=== PATIENT | female | born 1990 | race Caucasian/White ===

== ENCOUNTER 2017-01-23 08:49 | Inpatient (IN) ==
[2017-01-23] MEDS ORDERED: Naloxone 0.4 MG/ML INJ IVP PRN ×2 (09:29→13:59)
[2017-01-23] MEDS ORDERED: Famotidine 20 MG/2 ML VIAL IVP PRN (09:29)
[2017-01-23 10:13] LABS: Basophils % 0.4 %; Eosinophils % 0.5 %; Hematocrit 37.5 % (35.3-44.9); Hemoglobin 13.1 g/dL (11.5-15.4); Immature Granulocytes % 0.8 % (0-4); Lymphocytes # 1.7 K/mcL (0.6-4.6); Lymphocytes % 21.8 %; Mean Corpuscular HGB Conc 34.9 g/dL (31.6-35.5); Mean Corpuscular Hemoglobin 30.2 pg (28.0-33.3); Mean Corpuscular Volume 86.4 fL (83.0-100.0); Mean Platelet Volume 9.6 fL (9.4-12.4); Monocytes # 0.7 K/mcL (0.0-1.3); Monocytes % 8.5 %; Neutrophils # 5.3 K/mcL (1.6-8.9); Platelet Count 183 K/mcL (140-400); Red Blood Count 4.34 M/mcL (3.82-4.97); Red Cell Distribution Width 12.8 % (11.5-14.5)
[2017-01-23 11:00] LABS: Amphetamine Screen,Urine Negative ng/mL (Cutoff=1000); Barbiturate Screen,Urine Negative ng/mL (Cutoff=200); Benzodiazepines Screen,Urine Negative ng/mL (Cutoff=200); Cannabinoid Screen,Urine Negative ng/mL (Cutoff = 50); Cocaine Screen,Urine Negative ng/mL (Cutoff= 300); Opiate Screen,Urine Negative ng/mL (Cutoff=300); Phencyclidine Screen,Urine Negative ng/mL (Cutoff=25)
--- NOTE | 2017-01-23 11:18 | OB/GYN History & Physical ---
Date of Encounter: 01/23/17 Time of Encounter: 11:14 Assessment and Plan (1) Term Current visit: Yes Status: Acute P (2) Low amniotic fluid Current visit: Yes Status: Acute Admit for induction of labor due ot oligohydramnios. Rossi balloon induction. GBS negative. Anticpate . EPidural when requested. Qualifiers: Fetus number: single or unspecified fetus Trimester: third trimester Qualified Code(s): O41.03X0 - Oligohydramnios, third trimester, not applicable or unspecified (3) Heart murmur Current visit: Yes Status: Acute Heart murmur heard over the upper right sternal border. Patient states that she has been evaluated for this in the past and has been cleared. Patient has been cleared by [facility] for epidural and normal delivery. Anesthesia is aware of the murmur. History of Present Illness HPI: Ms. Navarro is a 26 year old female that is and currently 39w5d gestation. She is here for induction due to having oligohydramnios on ultrasound today. She denies any complications with the or any other complaints at this time. She does have a history of significant heart murmur for which she saw MFM and DIETARY MANAGER during this . 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 She had a normal echocardiogram during this . Per MFM and DIETARY MANAGER she can deliver at [place] and does not require telemetry monitoring. She also had a anesthesia consult and was told she can have an epidural. She states that she was having contractions every 15-30 at home but since she has been at the hospital for the past 2-3 hours she has only been able to feel one contraction. She states that she is still feeling movement. Patient denies any loss of fluid, discharge or vaginal bleeding. Patient states that she is planning on having an epidural for this . GBS negative HIV nonreactive treponema pallidum negative rubella IgG antibody positive Varicella IgG Antibody Positive Type and Screen A neg Hepatitis B Surface antigen Nonreactive. Past Med Surg Social Fam HX - Past Medical History Medical history: other (Heart Murmur) Psychiatric history: no psych history - Past Surgical History Surgical History: no surgical history - Social History Smoking Status: Never smoker Alcohol use: none Drug use: none Obstetrical History - Pregnancies : 2 Para: 1 Livin - History/Complications History/Complications: uncomplicated first delivery Medications and Allergies Vitamin Tablet 1 tab PO DAILY 01/23/17 [History] Ranitidine HCl [Zantac] 150 mg PO BID 01/23/17 [History] 3 Allergy/AdvReac Type Severity Reaction Status Date / Time No Known Allergies Allergy Verified 01/23/17 09:25 Review of System OB All systems PM: reviewed and no additional remarkable complaints except as stated - Constitutional Constitutional ROS IM: headache(s) (this morning) - Cardiovascular Cardiovascular: no chest pain, no edema, no leg edema, no pedal edema - Respiratory Respiratory: other, no cough, no dyspnea - Gastrointestinal Gastrointestinal: no abdominal pain, no diarrhea, no hematemesis, no nausea - Genitourinary Genitourinary: no dysuria, no hematuria, no vaginal discharge - Neurological Nerological: no numbness, no paresthesias, no weakness - Allergic/Immunologic Allergic/Immunologic: other (seasonal) Exam - Vital Signs Vital signs: Initial Vital Signs Temp Pulse Resp BP 98.1 F 80 14 122/70 01/23/17 09:20 01/23/17 09:20 01/23/17 09:20 01/23/17 09:20 - Constitutional Constitutional: well developed, well nourished, no acute distress - HEENT HEENT: Normocephaly, Mucus Membranes Moist - Neck Neck exam: full ROM, supple - Lungs Respiratory exam: CTAB - Cardiovascular Cardiovascular exam: RRR, systolic murmur (Best heard over the right sternal border. Second intercostal space) - Abdomen Abdomen: Present: bowel sounds normal, gravid, non tender - Extremities Extremities exam: full ROM, warm - Vagina Vagina: Present: normal moisture - Cervix Dilation: 2 Effacement: 70 Station: -2 - Anus/Rectum Anus/Rectum: Present: normal perianal skin Results Result Diagrams: 01/23/17 08:20 All other labs normal. - VTE Reasons for not Prescribing Prophylaxis: Treatment not Indicated - Low risk for VTE
--- NOTE | 2017-01-23 11:21 | Anesthesia Evaluation PreOp ---
Date of Encounter: 01/23/17 Time of Encounter: 11:04 - Past History Planned Operation: MARGARITO Cardiac History: Other (history of supravalvular aortic stenosis followed by [facility] from a young age. EF 60-65%, all heart chambers normal, all heart valves normal. Significant murmur on auscultation.) Pulmonary History: Denies Any Significant HX STAFFING ADMINISTRATOR History: Denies Any Significant HX Other Medical History: GERD (takes zantac twice daily.) Anesthesia History: Past Anesthesia (no anesthesia history, no family deaths related to anesthesia) : Yes Alcohol Use: none Drug use: none Medications and Allergies Vitamin Tablet 1 tab PO DAILY 01/23/17 [History] Ranitidine HCl [Zantac] 150 mg PO BID 01/23/17 [History] 3 Allergy/AdvReac Type Severity Reaction Status Date / Time No Known Allergies Allergy Verified 01/23/17 09:25 - Meds/Allergy Pre-op Review Medications Reviewed: Yes Allergies Reviewed: Yes Beta Blockers on Current Med List: No Anesthesia Results - Labs 01/23/17 08:20 Anesthesia Exam Vital Signs Temperature 98.1 F 01/23/17 09:20 Pulse Rate 80 01/23/17 09:20 Respiratory Rate 14 01/23/17 09:20 Blood Pressure 122/70 01/23/17 09:20 Temperature 98.1 F 01/23/17 09:20 Pulse Rate 80 01/23/17 09:20 Respiratory Rate 14 01/23/17 09:20 Blood Pressure 122/70 01/23/17 09:20 Height: 5'2" Weight: 61.7kg NPO (# of Hours): 4 Pain Scale: 0 Pain Scale Used: Numeric (1 - 10) - HEENT Pupil (Motor): Pupils equal Mallampati: II Teeth: Normal Oral Opening: Greater than 3 - STAFFING ADMINISTRATOR LOC: Oriented STAFFING ADMINISTRATOR Motor: Normal RUE, Normal LUE, Normal RLE, Normal LLE, Normal Face STAFFING ADMINISTRATOR Sensory: Normal: RUE, LUE, RLE, LLE, Face - Cardiac Rhythm: Regular Murmur: None JVD: No Carotid Bruit: No - Pulmonary Breath Sounds: bilateral Clear Respiratory Effort: Symmetrical Anesthesia Assess/Plan ASA Score: 2 Modified [place] Scale for Level of Consciousness: Cooperative, oriented, and tranquil Anesthetic Plan: Regional Autologous Blood: No Monitoring Plan: Standard Monitors Recovery Plan: Other
--- NOTE | 2017-01-23 11:38 | OB Labor Progress Note ---
Date of Encounter: 01/23/17 Time of Encounter: 11:35 Labor Progress Note - Subjective Subjective: Pt comfortable at this time with no complaints. - Cervix Cervix: 2/70/-2 - Heart Tones Heart Tones: Category I, reactive NST - [place]: irregular, mild UC - Interventions Interventions: Roth placed in cervix, balloon inflated with 60ml, pt tolerated well. - Plan Plan: Continue to monitor, plan for epidural placement when roth comes out if not needed before. POC made in collaboration with anesthesia.
[2017-01-23] MEDS ORDERED: Oxytocin 20 units/ LR 1000 mL 20 UNIT/1,000 ML BAG IVC SCH ×2 (13:15→20:10)
[2017-01-23] MEDS ORDERED: Famotidine 20 MG/2 ML VIAL IVP SCH ×2 (13:18→18:00)
[2017-01-23] MEDS ORDERED: Ringers Solution, Lactated 1,000 ML ONE (13:23)
[2017-01-23] MEDS: Ringers Solution, Lactated 1,000 ML IVC SCH ×2 (13:27→15:45)
[2017-01-23] MEDS ORDERED: 0.9 % Sodium Chloride 500 ML ONE (13:28)
[2017-01-23] MEDS ORDERED: Bupivacaine-MPF 0.25% 10 ML VIAL EP ONE (13:59)
[2017-01-23] MEDS ORDERED: Ondansetron 4 MG/2 ML VIAL IVP PRN (13:59)
[2017-01-23] MEDS ORDERED: *HR* FentaNYL (PF) 100 MCG/2 ML VIAL EP ONE (13:59)
[2017-01-23] MEDS ORDERED: EPHEDrine 50 MG/ML VIAL IVP PRN (13:59)
[2017-01-23] MEDS ORDERED: Epidural Premix (fent/bupiv) 110 ML EP SCH (14:00)
[2017-01-23] MEDS ORDERED: Epidural Premix (fent/bupiv) 110 ML EP ONE (14:13)
--- NOTE | 2017-01-23 15:05 | Anesthesia Procedures ---
Date of Encounter: 01/23/17 Time of Encounter: 14:35 Procedures: Anesthesia - Epidural/Spinal Patient ID/Chart reviewed: Yes Patient examined: Yes OB Eval: Gestational age: 39.3 OB Eval: : 2 OB Eval: Hx Para: 1 OB Eval: Dilated at (cm): 6 OB Eval: Contractions: Non-stressed pattern Consent Obtained: Yes Site Prep: Aseptic Technique, Sterile prep and drape, Povidone-Iodine 1% Patient position: upright Local Anesthetic: Lidocaine 1% Amount of Local Anesthetic used: 3 Touhy Needle Gauge: 18 Touhy Needle Depth (cm): 5 Catheter Depth at Skin (cm): 15 Test Dose (1.5% Lido + Epi): Volume given (mls): 3 Test Dose Result: Negative Loading Dose: 0.25% Marcaine (mls): 0 Infusion Med: 0.125% Bupivacaine w/ 2 mcg/ml Fentanyl Infusion Rate (mls/hr): 7 (slow increase as tolerated to full dose of 12-15ml/hr ) Catheter Secured in Place: Tegaderm, Tape Interspace Used: L4-L5 Loss of Resistance (JARON): Yes Blood: No CSF: No Paresthesia: No Procedure: MARGARITO placed 1st pass without any immediate noted complications. No bolus administered and plan to start pump at 7ml/hr and increase slowly to full dose of 12-16ml/hr as tolerated as a precautionary measure due to history of supraventricular aortic valve obstruction. Will monitor blood pressure closely with onset of epidural medication. Vitals + FHT's: 1435 BP 137/85 P 98 R 16 1458 BP 130/60 P 85 R 16
--- NOTE | 2017-01-23 19:26 | OB/GYN Procedure Note ---
Delivery - Delivery Date: 01/23/17 Provider: Lori Cash Intrapartum events: oligohydramnios Delivery induction: roth Delivery augmentation: rupture of membranes, pitocin Delivery monitor: external FHT, external uterine Anesthesia: epidural Estimated Blood Loss: 400 - (s) Infant A Infant Delivery Date: 01/23/17 Delivery Time: 18:47 Presentation: vertex Position: RYLAN Route of delivery: Gender: Female Viability: Viable Pounds: 6 Ounces: 6 Weight Gram: 2890 kg at 1 minute: 8 at 5 mins: 9 Shoulder Dystocia: not encountered Specimens collected: cord blood Placenta: spontaneous Cord: 3 umbilical vessels - Repair Episiotomy: none Laceration Description: Perineal - 1st Degree - Complications Delivery complications: none Delivery comments: Pt progressed normally and pushed effectively for for viable female "Vesna " weighing 6lbs 6oz with apgars 8 at one minute and 9 at five minutes. After a 2 minutes delay the cord was clamped and cut and the placenta delivered spontaneous and intact bradley. A first degree perineal laceration was repaired with 3-0 Vicryl. Mother and baby stable in kangaroo care following delivery. - Disposition Mom disposition: stable in LDR disposition: stable in LDR
[2017-01-23] MEDS ORDERED: Benzocaine/Menthol 56 GM AEROSOL SPRAY TP PRN (20:10)
[2017-01-23] MEDS ORDERED: Measles/Mumps/Rubella Vacc 0.5 ML VIAL SQ PRN (20:10)
[2017-01-23] MEDS ORDERED: Rho Immune Globulin 1,500 UNIT SYRINGE IM PRN (20:10)
[2017-01-23] MEDS ORDERED: Lanolin 28 GM TUBE TP PRN (20:10)
[2017-01-23] MEDS ORDERED: Acetaminophen 325 MG TABLET PO PRN (20:10)
[2017-01-23] MEDS: Ibuprofen 600 MG TABLET PO PRN (21:58)
[2017-01-24] MEDS: Ibuprofen 600 MG TABLET PO PRN ×2 (03:40→10:59)
[2017-01-24] MEDS ORDERED: Prenatal Vit/FA 1 EACH TABLET PO SCH (09:00)
--- NOTE | 2017-01-24 09:24 | Discharge Summary ---
Date of Encounter: 01/24/17 Time of Encounter: 09:21 - Discharge Diagnosis (1) Vaginal delivery Priority: Primary Status: Acute Comments: Pt states feels well. Pain well managed on po pain medication, , desires discharge. (2) Heart murmur Priority: Secondary Status: Acute - Discharge Medications Prescriptions: Ibuprofen [Motrin] 600 mg PO Q6HR PRN #60 tablet PRN Reason: Cramping Docusate [Colace] 100 mg PO BID #60 capsule Home Medications: Vitamin Tablet 1 tab PO DAILY 01/23/17 [History] Ranitidine HCl [Zantac] 150 mg PO BID 01/23/17 [History] Benzocaine/Menthol [place] [Dermoplast [place]] 1 appl TP QID PRN aerosol 01/24/17 [Rx] Docusate [Colace] 100 mg PO BID #60 capsule 01/24/17 [Rx] Ibuprofen [Motrin] 600 mg PO Q6HR PRN #60 tablet 01/24/17 [Rx] Lanolin 1 appl TP Q4HR PRN tube 01/24/17 [Rx] Vit/FA 1 each PO DAILY tablet 01/24/17 [Rx] Allergies/Adverse Reactions: 3 Allergy/AdvReac Type Severity Reaction Status Date / Time No Known Allergies Allergy Verified 01/23/17 09:25 Data Procedures and tests throughout hospitalization: Laboratory Tests 01/23/17 01/23/17 08:20 08:20 WBC 7.8 RBC 4.34 Hgb 13.1 Hct 37.5 MCV 86.4 MCH 30.2 MCHC 34.9 RDW 12.8 Plt Count 183 MPV 9.6 Immature Gran % 0.8 Seg Neutrophils % 68.0 Lymphocytes % 21.8 Monocytes % 8.5 Eosinophils % 0.5 Basophils % 0.4 Neutrophils # 5.3 Lymphocytes # 1.7 Monocytes # 0.7 Eosinophils # 0.0 Basophils # 0.0 Immature Plt Fraction 4.0 Urine Opiates Screen Negative Ur Barbiturates Screen Negative Ur Phencyclidine Scrn Negative Ur Amphetamines Screen Negative U Benzodiazepines Scrn Negative Urine Cocaine Screen Negative U Marijuana (THC) Screen Negative Labs on day of discharge: Labs from last 24 hours 01/23/17 01/23/17 08:20 08:20 WBC 7.8 RBC 4.34 Hgb 13.1 Hct 37.5 MCV 86.4 MCH 30.2 MCHC 34.9 RDW 12.8 Plt Count 183 MPV 9.6 Immature Gran % 0.8 Seg Neutrophils % 68.0 Lymphocytes % 21.8 Monocytes % 8.5 Eosinophils % 0.5 Basophils % 0.4 Neutrophils # 5.3 Lymphocytes # 1.7 Monocytes # 0.7 Eosinophils # 0.0 Basophils # 0.0 Immature Plt Fraction 4.0 Urine Opiates Screen Negative Ur Barbiturates Screen Negative Ur Phencyclidine Scrn Negative Ur Amphetamines Screen Negative U Benzodiazepines Scrn Negative Urine Cocaine Screen Negative U Marijuana (THC) Screen Negative Date of admission: 01/23/17 08:49 Primary care physician: Tess Arreaga CNP Consults: 01/23/17 20:10 Consult to Sheet Metal Pattern Cutter [CONS] Routine Comment: Vaginal delivery, consult needed Discharging clinician: Estephanie Gaviria Anticipated date of discharge: 01/24/17 - Patient Status Disposition: Home, Self-Care Condition: Good Functional capacity at discharge: independent ambulation Overall status at discharge: patient is back to baseline - Discharge Instructions Follow Up With: Tess Arreaga CNP [Primary Care Provider] - - Diet and Activity Activity: resume usual activities as tolerated Diet: regular diet Hospital Course Reason for admission: IUP at term Delivery: Episiotomy: none Laceration: 1st degree Other procedures: none complications: none Discharge diagnosis: IUP at term delivered [place] baby: female Hospital course: Delivery - Delivery Date: 01/23/17 Provider: Lori Cash Intrapartum events: oligohydramnios Delivery induction: roth Delivery augmentation: rupture of membranes, pitocin Delivery monitor: external FHT, external uterine Anesthesia: epidural Estimated Blood Loss: 400 - Infant (s) A Infant Delivery Date: 01/23/17 Infant Delivery Time: 18:47 Presentation: vertex Position: RYLAN Route of delivery: Gender: Female Viability: Viable Pounds: 6 Ounces: 6 Weight Gram: 2890 kg at 1 minute: 8 at 5 mins: 9 Shoulder Dystocia: not encountered Specimens collected: cord blood Placenta: spontaneous Cord: 3 umbilical vessels - Repair Episiotomy: none Laceration Description: Perineal - 1st Degree - Complications Delivery complications: none Delivery comments: Pt progressed normally and pushed effectively for for viable female "Vesna " weighing 6lbs 6oz with apgars 8 at one minute and 9 at five minutes. After a 2 minutes delay the cord was clamped and cut and the placenta delivered spontaneous and intact bradley. A first degree perineal laceration was repaired with 3-0 Vicryl. Mother and baby stable in kangaroo care following delivery. - Disposition Mom disposition: stable in PP and appropriate for discharge. Time Attestation: Total time spent providing and/or coordinating discharge services: Time Spent: Less than 30 minutes Exam - Constitutional Vitals: Temp Pulse Resp BP Pulse Ox 97.6 F 74 16 122/71 99 01/24/17 08:00 01/24/17 08:00 01/24/17 08:00 01/24/17 08:00 01/24/17 08:00 General appearance IM: A&O X 3 - Respiratory Respiratory exam: Present: CTAB - Cardiovascular Cardiovascular exam IM: Present: RRR, systolic murmur - GI/Abdominal GI/Abdominal exam IM: soft - Uterine Tone: Firm Uterus Position: At Umbilicus - Extremities Exam Extremities exam IM: Present: normal capillary refill, normal inspection - Neurological Exam Neurological exam: normal gait, oriented X3 - Psychiatric Additional comments: Reports good mood.
[2017-01-24 16:25] VITALS: BP 112/68
== END 2017-01-24 19:25 | disposition home or self-care (01) | DRG 774 ==
LOC: 1NENULAB 08:49 → 1NENUOBS 21:48
PROVIDERS: ADMIT Registered Nurse; ATTEND Registered Nurse